=== PATIENT | female | born 1980 | race Caucasian/White ===

== ENCOUNTER 2016-11-01 09:15 | Outpatient (RCR) | payer MEDICAID | END 2016-11-28 15:03 | disposition still patient (30) | LOC: MKS.ESL.PT 09:15 | DX: M25.562 Pain in left knee (principal) ==

== ENCOUNTER 2016-12-04 10:15 | Outpatient (RCR) | payer MEDICAID | END 2017-02-26 | LOC: MKS.ESL.PT | DX: M25.511 Pain in right shoulder (principal) ==

== ENCOUNTER 2019-06-13 12:47 | Outpatient (RCR) | payer MEDICAID ==
[~2019-06-13 12:47] MED LIST: CEPHALEXIN500 M1 PO; NORCO 325 MG-51 TAB PO; RITALIN 20M20 MG/TAB PO
== END 2019-07-09 08:11 | disposition home or self-care (01) ==
LOC: WSC 12:47
DX: M25.511 Pain in right shoulder (principal)

== ENCOUNTER 2019-10-28 10:00 | Outpatient (RCR) | payer MEDICAID | END 2019-11-02 | disposition still patient (30) | LOC: WSC | DX: M25.511 Pain in right shoulder (principal); Z96.611 Presence of right artificial shoulder joint ==

== ENCOUNTER 2019-12-23 16:15 | Outpatient (RCR) | payer MEDICAID | END 2020-01-22 09:59 | disposition home or self-care (01) | LOC: WSC 16:15 | DX: Z98.890 Other specified postprocedural states (principal) ==

== ENCOUNTER 2022-06-19 15:15 | Outpatient (RCR) | payer MEDICAID | END 2022-06-23 | disposition home or self-care (01) | LOC: PT.GENESIS | DX: M25.511 Pain in right shoulder (principal) ==

== ENCOUNTER 2022-07-10 14:45 | Outpatient (RCR) | payer MEDICAID | END 2022-07-23 | disposition home or self-care (01) | LOC: PT.GENESIS | DX: M25.511 Pain in right shoulder (principal) ==